=== PATIENT | male | born 1985 | race Caucasian/White ===

== ENCOUNTER → 2018-02-02 | Outpatient (CLI) | payer BC | END | disposition home or self-care (01) | LOC: LABWHC1 09:58 | PROVIDERS: ATTEND Physician Assistant Medical | DX: Z01.83 Encounter for blood typing (principal) | CPT/HCPCS: 86900; 86901 ==

== ENCOUNTER → 2019-01-24 | Outpatient (CLI) | payer BC ==
--- NOTE | 2019-01-24 10:20 | XR ---
EXAMINATION TYPE: XR knee complete LT DATE OF EXAM: 01/24/2019 COMPARISON: NONE HISTORY: Pain TECHNIQUE: Four views are submitted. FINDINGS: Joint spaces are preserved. Osseous structures are intact. No acute fracture seen. Prepatellar sof t tissue edema and suprapatellar bursal fluid collection noted. IMPRESSION: 1. No acute fracture or dislocation. 2. Prepatellar soft tissue edema with small suprapatellar bursal fluid collection.
--- NOTE | 2019-01-24 10:22 | XR ---
EXAMINATION TYPE: XR ribs LT w pa chest xray DATE OF EXAM: 01/24/2019 COMPARISON: NONE HISTORY: Pain TECHNIQUE: Frontal view the chest and 4 views of the left ribs are submitted FINDINGS: Heart size is normal. No consolidation, pleural effusion or pneumothorax. No interstitial e kimber. Osseous structures intact. IMPRESSION: No osseous abnormality identified.
== END | disposition home or self-care (01) ==
LOC: RADXRYALE 09:26
PROVIDERS: ATTEND Family Medicine
DX: M79.89 Other specified soft tissue disorders (principal); M54.6 Pain in thoracic spine